=== PATIENT | female | born 1995 | race Caucasian/White ===

== ENCOUNTER 2018-01-04 13:16 | Emergency (ER) | payer OTHER ==
[2018-01-04 14:38] VITALS: BP 108/84
[2018-01-04] MEDS ORDERED: RIVAROXABAN 10 MG TAB PO ONE (14:40)
--- NOTE | 2018-01-04 14:40 | EDPHY ---
General Time Seen by Provider: 01/04/18 14:09 Narrative: CHIEF COMPLAINT: Left leg swelling and pain HISTORY OF PRESENT ILLNESS: Patient presents with complaints of left leg swelling and pain with concern for DVT. She says she has had pain in the left foot for approximately 2 weeks with no known injury. The pain is now migrated to the left medial calf and she feels a red in firm area. [id number] with palpation movement. Improved at rest. Worse in the morning when she wakes. She is concerned because she fluid here recently from [place] and does take oral contraceptives. She has no chest pain or shortness of breath. No pain in the right groin or thigh. No trauma. No history of venous thrombolic event. No other associated complaints or modifying factors. REVIEW OF SYSTEMS: Ten systems reviewed and are negative unless otherwise noted in the HPI PCP: Located in the [place] SPECIALISTS: None PAST MEDICAL HISTORY: Uncomplicated PAST SURGICAL HISTORY: none SOCIAL HISTORY: Nonsmoker. Lives in [place] independently with her spouse. Currently visiting for a vacation. FAMILY HISTORY: Noncontributory EXAMINATION General Appearance: Alert, no distress Head: normocephalic, atraumatic Eyes: Pupils equal and round, no conjunctival pallor or injection Respiratory: Lungs are clear to auscultation Cardiovascular: Regular rate and rhythm no murmur. Symmetric DP PT pulses 2+. Neurological: A&O, nonfocal, normal gait Skin: Warm and dry, no rash Extremities: Mild tenderness to the left medial calf proximally into the ER to the left foot. There is a palpable firmness about the medial calf with some mild erythema to it. No posterior cords. No pain with passive dorsiflexion. Psychiatric: Mood and affect normal DIFFERENTIAL DIAGNOSES: Including but not limited to DVT, superficial thrombus, superficial thrombophlebitis, strain, sprain, seroma, hematoma MDM: 1:45 p.m. Left lower extremity pain, swelling and firmness to the medial calf in the presence of recent flight from [place] and patient takes oral contraceptives. DVT studies ordered. I do not feel she warrants any further studies at the time. 2:20 p.m. Notified by radiologist. There is no DVT but there is a superficial thrombus of the left greater saphenous vein that does not extend above the knee. I discussed the case with Dr. Chacon, that I have also reviewed the current literature through up-to-date. Consents is seems to be that the patient would benefit from 45 days of anticoagulation with rivaroxaban given the proximity to the deep venous structures. 2:30 p.m. Patient re-evaluated. I discussed the findings with her and she has added further information. She states that she has already been on aspirin for the past 2 weeks, thus I do feel she would benefit from Xarelto for ongoing care. We discussed 45 day course. We discussed close follow-up with primary care physician upon return to [place]. We discussed elevation, light activity compression as tolerated. Case management has assisted with prescription assistance. I have answered all of her questions. We discussed risks benefits alternatives medication. We discussed follow up with primary care physician to discontinue oral contraceptive in for alternative methods. Discharged stable condition. SUPERVISION: Patient was independently examined, but I discussed the case with my secondary supervising physician Dr. Chacon - Diagnostics Imaging Results: Imaging Impressions Extremity Venous Study 01/04/18 13:47 Impression: 1. No evidence of deep vein thrombosis. 2. Superficial thrombus in the great saphenous vein of the mid calf. Dr. Pace was notified of these findings by telephone at 1419 on 01/04/2018 - History Smoking Status: Never smoked - Objective Vital Signs: Initial Vital Signs Temperature (C) 98.8 F 01/04/18 13:24 Heart Rate 68 01/04/18 13:24 Respiratory Rate 16 01/04/18 13:24 Blood Pressure 116/80 01/04/18 13:24 O2 Sat (%) 96 01/04/18 13:24 O2 Delivery Mode Room Air Allergies/Adverse Reactions: No Known Allergies Allergy (Unverified 01/04/18 13:24) Home Medications: Medication Instructions Recorded Bcp 01/04/18 Rivaroxaban [Xarelto 10mg (*)] 10 mg PO DAILY #45 tab 01/04/18 Medications Given: Discontinued Medications Rivaroxaban (Xarelto) 10 mg PO EDNOW ONE Stop: 01/04/18 14:41 Last Admin: 01/04/18 15:07 Dose: 10 mg Departure - Departure Disposition: Home, Routine, Self-Care Clinical Impression: Thrombosis of saphenous vein Qualifiers: Laterality: left Qualified Code(s): I82.812 - Embolism and thrombosis of superficial veins of left lower extremity Condition: Good Instructions: Superficial Thrombophlebitis (ED) Additional Instructions: 1. Xarelto 10 mg by mouth once daily for 45 days or until changed by your primary care physician 2. Follow up with primary care physician Upon return to [place] 3. ED precautions for any chest pain or shortness of breath 4. Discontinue use of your aspirin and anti-inflammatories Referrals: Audra Bob MD [Medical Doctor] - As per Instructions Prescriptions: Rivaroxaban [Xarelto 10mg (*)] 10 mg PO DAILY #45 tab
== END 2018-01-04 15:22 | disposition home or self-care (01) ==
DX: I82.812 Embolism and thrombosis of superficial veins of left lower extremity (principal)